=== PATIENT | female | born 1975 | race Caucasian/White ===

== ENCOUNTER 2023-05-11 13:56 | Outpatient (REF) | payer OTHER, SELFPAY ==
--- NOTE | ~2023-05-11 | XR_ITS ---
EXAMINATION: XR LUMBOSACRAL SPINE WITH OBLIQUES CLINICAL INFORMATION: Intervertebral disc degeneration lumbar region. COMPARISON: None available. TECHNIQUE: 4 views of the lumbar spine inclusive of flexion and extension views. FINDINGS: Surgical clips in the right upper quadrant of the abdomen. Rounded metallic hardware partially imaged overlying the pelvis and sacrum, obscuring detailed evaluation. Correlation with clinical exam recommended to determine significance. Mild leftward curvature of the lumbar spine. Asymmetric degenerative changes with hypertrophic change in the right sacroiliac joint. Posterior fixation hardware with bilateral vertical rods and bilateral transpedicular screws at what will be referred to as L5-S1 for the purposes of this report. Correlation with prior imaging including surgical report recommended to confirm appropriate numeration of vertebral bodies prior to any procedure/intervention. Hardware appears intact. Interdisc device present at this level. Moderate lumbar spondylosis with loss of disc space height at L4-L5. Alignment preserved on flexion and extension views. XR/XR lumbar spine 4V min IMPRESSION: Posterior fixation hardware at what will be referred to as L5-S1 for the purposes of this report. Correlation with prior imaging including surgical report recommended to confirm appropriate numeration of vertebral bodies prior to any procedure/intervention. Hardware appears intact. Moderate lumbar spondylosis at L4-L5.
== END 2023-05-11 13:57 | disposition home or self-care (01) ==
LOC: HO.HOSX 13:56
PROVIDERS: PCP Internal Medicine; Visit Provider Physician Assistant
DX: M51.36 Other intervertebral disc degeneration, lumbar region (principal)
CPT/HCPCS: 72110

== ENCOUNTER 2023-05-11 13:56 | Outpatient (AMB) | payer OTHER, SELFPAY ==
--- NOTE | 2023-05-11 14:03 | A.OFFVIS_ITS ---
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 She is a patient known to us from our previous practice at [facility]. She underwent an L4-5 attempted trans Kambin approach in 2019 ultimately converted to a transforaminal lumbar interbody fusion. She had [address] Carbajal at the L4-5 level before our fusion surgery. She had been doing very well until about 6 months ago when she noticed an abrupt onset of progressively worsening low back pain with pain radiating down into her outer thigh and into her foot with numbness on the lateral aspect of her foot and her pinky toe. She tried to just wait this out a little bit. She is familiar with back recovery issues so she has been doing stretching and various basic rehabilitation activities. She is avoiding s tressors. Unfortunately she has been hobbling around because of plantar fasciitis in her left foot so she thinks this may have been aggravating things. Currently she has a constant ache in her leg which she describes as being very uncomfortable and painful. She is tried [id number] medications without much relief. She is here today to be evaluated. On my exam she appears uncomfortable, she does have a positive straight leg raise at about 20 degrees, no focal weakness, reflexes are normal. My suspicion is that she may have a herniated disc either above or below her fusion. I will order a lumbar x-ray to evaluate her hardware and a lumbar MRI with and without gadolinium. I will see her back once these things are completed. Total amount of time spent in this visit was 20 minutes in discussion of symptoms, ordering MRI, and subsequent plan of care Toni Henao MD,PhD [facility] Orders: Orders XR lumbar spine 4V min Today M51.36 - Other intervertebral disc degeneration, lumbar region MR lumbar spine wo/w con Today M51.36 - Other intervertebral disc degeneration, lumbar region Coding Level of Care Code Est Pt Level 3 (11070) Diagnoses Lumbar degenerative disc disease M51.36
== END 2023-05-11 14:42 | disposition home or self-care (01) ==
PROVIDERS: PCP Internal Medicine; Referring Provider Internal Medicine; Visit Provider Physician Assistant
DX: M51.36 Other intervertebral disc degeneration, lumbar region (principal)
CPT/HCPCS: 99213

== ENCOUNTER 2023-05-28 15:26 | Outpatient (REF) | payer OTHER, SELFPAY ==
--- NOTE | ~2023-05-28 | MR_ITS ---
EXAMINATION: MR LUMBAR SPINE WITH AND WITHOUT CONTRAST CLINICAL INFORMATION: Prior lumbar fusion, back pain COMPARISON: Outside MRI 08/21/2019 TECHNIQUE: MRI of the lumbar spine was obtained using routine sequences with and without the administration of intravenous contrast. 10 mL of intravenous Gadavist was administered without immediate complication. 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 For the purposes of this examination, the L4-L5 intervertebral disc space is visualized on axial series 6 image 18, in keeping with the numbering system for the prior MRI examination. The normal lumbar lordosis is preserved. No significant spondylolisthesis. Lumbar vertebral body heights are maintained. Interval posterior decompression and fusion at L4-L5 with paired pedicle screws and intervertebral disc spacer. There is fatty marrow changes at the L4-L5 endplates. Probable intraosseous hemangiomas in the S2 and S3 vertebral bodies. The conus medullaris and cauda equina nerve roots are unremarkable; the conus terminates at the level of L1. No abnormal enhancement along the cauda equina nerve roots. L1-L2: No significant spinal canal or neural foraminal stenosis. L2-L3: Trace disc bulge and facet arthropathy. The spinal canal and neural foramen are not significantly narrowed. L3-L4: Mild disc bulge and right greater than left facet arthropathy with ligamentum flavum redundancy. The lateral recesses are mildly narrowed. The central canal is otherwise patent. Mild narrowing of the neural foramen. L4-L5: Posterior surgical changes as described above. No significant residual spinal canal stenosis. The right neural foramen is patent. Osteophytic ridging with mild narrowing of the left neural foramen. L5-S1: Central annular fissure. Facet arthropathy. The spinal canal and neural foramen are not significantly narrowed. Colonic diverticulosis. 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 Numbering system for this examination as described above, in keeping with the prior lumbar spine MRI examination. Posterior decompression and fusion at L4-L5 without significant residual canal stenosis at this level. There is mild narrowing of the left neural foramen at L4-L5. Additional degenerative changes as described above without high-grade spinal canal or neural foraminal stenosis.
[2023-05-28] MEDS: gadobutroL 10 ML VIAL IVPUSH (16:10)
== END 2023-05-28 15:27 | disposition home or self-care (01) ==
LOC: HO.MRI 15:26
PROVIDERS: PCP Internal Medicine; Visit Provider Physician Assistant
DX: M51.36 Other intervertebral disc degeneration, lumbar region (principal)
CPT/HCPCS: 72158; A9585